=== PATIENT | female | born 1990 | race Caucasian/White ===

== ENCOUNTER 2025-02-17 16:28 | Emergency (ER) | payer OTHER ==
[~2025-02-17] VITALS: Ht 165.1 cm; Wt 80.0 kg
[2025-02-17 16:29] VITALS: O2SAT 97
[2025-02-17 17:36] LABS: BASOPHILS % 0.6 % (0.0-2.0); EOSINOPHILS % 1.3 % (0.0-5.0); HEMATOCRIT. 36.2 % (36.0-48.0); HEMOGLOBIN. 11.9 g/dL (12.0-16.0); LYMPHOCYTES % 31.3 % (20.0-50.0); MEAN CORPUSCULAR HEMOGLOBIN 26.4 pg (28.0-32.0); MEAN CORPUSCULAR HGB CONC 32.8 g/dL (31.0-37.0); MEAN CORPUSCULAR VOLUME 80.4 fL (81.0-99.0); MEAN PLATELET VOLUME 7.5 fl (7.4-10.4); MONOCYTES % 6.8 % (2.0-8.0); PLATELET 292 x1000/uL (130-400); RED CELL DISTRIBUTION WIDTH 16.8 % (11.6-14.6)
[2025-02-17 17:51] LABS: CHLORIDE 105 mEq/L (98-107); SODIUM 140 mEq/L (136-145)
[2025-02-17 17:52] LABS: CARBON DIOXIDE 26 mEq/L (21-32)
[2025-02-17 17:53] LABS: CALCIUM 8.9 mg/dL (8.7-10.4)
[2025-02-17 17:57] LABS: CREATININE 0.8 mg/dL (0.6-1.0); GLUCOSE 86 mg/dL (70-105); UREA NITROGEN BLOOD 12 mg/dL (9-23)
[2025-02-17 18:03] LABS: HCG SCREEN NEGATIVE
[2025-02-17 18:20] VITALS: BP 121/67; PULSE 81; RESP 16; TEMP 36.7; O2SAT 98
== END 2025-02-17 18:22 | disposition home or self-care (01) ==
LOC: ER 16:28
DX: F41.0 Panic disorder [episodic paroxysmal anxiety] (principal)
CPT/HCPCS: 36415; 80048; 84703; 85025; 99283